=== PATIENT | male | born 1980 | race Hispanic/Latino ===

== ENCOUNTER 2024-05-02 20:57 | Inpatient (IN) | payer SELFPAY ==
[~2024-05-02] VITALS: Ht 180.3 cm; Wt 105.7 kg
[2024-05-02] MEDS: niCARDIpine 25MG INJ IV ONE (21:21)
[2024-05-02 21:26] LABS: BASOPHILS # (AUTO) 0.07 K/uL (0.00-0.20); BASOPHILS % (AUTO) 0.7 % (0.0-5.0); EOSINOPHILS # (AUTO) 0.13 K/uL (0.00-0.70); EOSINOPHILS % (AUTO) 1.3 % (0.0-8.0); HEMATOCRIT 37.8 % (42-54); IMMATURE GRANULOCYTE ABSOLUTE 0.05 K/uL (0-1); LYMPHOCYTES # (AUTO) 2.3 K/uL (1.0-4.8); LYMPHOCYTES % (AUTO) 23.9 % (21.0-51.0); MEAN CORPUSCULAR HEMOGLOBIN 30.8 pg (27.0-33.0); MEAN CORPUSCULAR HGB CONC 35.2 g/dL (32.0-36.0); MEAN CORPUSCULAR VOLUME 87.5 fL (79-99); MONOCYTES # (AUTO) 0.5 K/uL (0.1-1.0); MONOCYTES % (AUTO) 5.6 % (3.0-13.0); NEUTROPHILS # (AUTO) 6.6 K/uL (1.8-7.7); PLATELET COUNT (AUTO) 186 K/uL (130-400); RED BLOOD CELL COUNT(AUTO) 4.32 MIL/uL (4.50-6.20); RED CELL DISTRIBUTION WIDTH 12.3 % (11.0-15.5); WHITE BLOOD COUNT (AUTO) 9.7 K/uL (4.8-10.8)
[2024-05-02 21:30] LABS: ADD UA MICROSCOPIC YES; APPEARANCE,URINE CLEAR (CLEAR); BILIRUBIN,URINE NEGATIVE (NEGATIVE); COLOR,URINE LIGHT-YELLOW (YELLOW); GLUCOSE, URINE (UA) >=1000 mg/dL (NEGATIVE); KETONES,URINE NEGATIVE (NEGATIVE); LEUKOCYTE ESTERASE ,URINE NEGATIVE Leu/uL (NEGATIVE); NITRATE,URINE NEGATIVE (NEGATIVE); OCCULT BLOOD,URINE SMALL (NEGATIVE); PH,URINE 6.5 (5.0-8.0); PROTEIN,URINE 600 mg/dL (NEGATIVE); UROBILINOGEN,URINE 0.2 mg/dL (0.2-1.0)
[2024-05-02 21:34] LABS: CREATININE 1.8 mg/dL (0.5-1.3); POTASSIUM 3.5 mmol/L (3.5-5.1)
[2024-05-02] MEDS: NICARDIPINE IV PRN (21:38)
[2024-05-02] MEDS: NACL 0.9% IV PRN (21:38)
[2024-05-02 21:51] LABS: B-TYPE NATRIURETIC PEPTIDE 83 pg/mL (0-100)
[2024-05-02 22:04] LABS: BACTERIA,URINE RARE /HPF (None Seen); MUCUS,URINE RARE LPF (None Seen); SQUAMOUS EPITHELIAL CELL,UR RARE /HPF (0-2); YEAST,URINE BUDDING RARE /HPF (None Seen)
--- NOTE | 2024-05-02 22:13 | ERN ---
General Chief Complaint: Headache Stated Complaint: HEADACHE, DIZZINESS, BLURRY VISION Time Seen by MD: 20:59 History of Present Illness Initial Comments Mr. Tidwell is a very pleasant 43-year-old male who comes in with a past medical history of essential hypertension, type 2 diabetes, history of medical noncompliance. Patient reports that he has been having ongoing visual changes and headache for the last several days. 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 Patient initial presentation has a blood pressure of 201/125 with a blood sugar in the 400s. Allergies: Coded Allergies: No Known Drug Allergies (Unverified Allergy, Unknown, 05/02/24) Past Medical History Past Medical History: Diabetes-Type II, Hypertension Past Surgical History: None ROS Dictation Constitutional: Negative for fever,chills, and weight loss Eyes: Negative for injury, pain,redness, and discharge ENT: Positive for visual changes Cardiovascular: Negative for chest pain, palpitations, and edema Respiratory: Negative for shortness of breath, cough, and wheezing, Abdomen/GI: Negative for abdominal pain, nausea, vomiting, diarrhea, and constipation Back: Negative for injury and pain : Negative for injury, bleeding and discharge MS/Extremity: Negative for injury and deformity Skin: Negative for rash, and discoloration Neuro: Headache Psych: Negative for suicide ideation, homicidal ideation, and hallucinations Physical Exam Physical Exam Dictation General: awake, alert, NAD Head/Face: Normocephalic, atraumatic Eyes: PERRL, vision blurry ENT: oral cavity clear, Neck: Trachea midline, supple, no nuchal rigidity Cardiovascular: RRR, normal S1/S2, No MRGs, no JVD Respiratory: CTAB, no respiratory distress, No rales or wheezes Abdomen: Soft, non-tender, non-distended, Skin: Warm, dry, normal turgor, no rash MS/Extremity: Pulses equal, no cyanosis Neuro: COAx4, GCS 15, Results Laboratory and Microbiology Lab and Micro Result Laboratory Tests Test 05/02/24 21:17 White Blood Count 9.7 K/uL (4.8-10.8) Red Blood Count 4.32 MIL/uL (4.50-6.20) L Hemoglobin 13.3 g/dL (14.0-18.0) L Hematocrit 37.8 % (42-54) L Mean Corpuscular Volume 87.5 fL (79-99) Mean Corpuscular Hemoglobin 30.8 pg (27.0-33.0) Mean Corpuscular Hemoglobin Concent 35.2 g/dL (32.0-36.0) Red Cell Distribution Width 12.3 % (11.0-15.5) Platelet Count 186 K/uL (130-400) Mean Platelet Volume 13.3 fL (7.5-10.5) H Immature Granulocyte % (Auto) 0.5 % (0-1) Neutrophils (%) (Auto) 68.0 % (40.0-77.0) Lymphocytes (%) (Auto) 23.9 % (21.0-51.0) Monocytes (%) (Auto) 5.6 % (3.0-13.0) Eosinophils (%) (Auto) 1.3 % (0.0-8.0) Basophils (%) (Auto) 0.7 % (0.0-5.0) Neutrophils # (Auto) 6.6 K/uL (1.8-7.7) Lymphocytes # (Auto) 2.3 K/uL (1.0-4.8) Monocytes # (Auto) 0.5 K/uL (0.1-1.0) Eosinophils # (Auto) 0.13 K/uL (0.00-0.70) Basophils # (Auto) 0.07 K/uL (0.00-0.20) Absolute Immature Granulocyte (auto 0.05 K/uL (0-1) Nucleated Red Blood Cells 0.0 % (0.0-0.19) Urine Color LIGHT-YELLOW (YELLOW) Urine Appearance CLEAR (CLEAR) Urine pH 6.5 (5.0-8.0) Urine Specific [place] 1.032 (1.001-1.031) Urine Protein 600 mg/dL (NEGATIVE) H Urine Glucose (UA) >=1000 mg/dL (NEGATIVE) H Urine Ketones NEGATIVE mg/dL (NEGATIVE) Urine Occult Blood SMALL (NEGATIVE) H Urine Nitrate NEGATIVE (NEGATIVE) Urine Bilirubin NEGATIVE mg/dL (NEGATIVE) Urine Urobilinogen 0.2 mg/dL (0.2-1.0) Urine Leukocyte Esterase NEGATIVE Paulina/uL Urine RBC 6-10 /HPF (0-1) H Urine WBC 2-5 /HPF (0-1) H Urine Squamous Epithelial Cells RARE /HPF (0-2) Urine Bacteria RARE /HPF (None Seen) Urine Yeast RARE /HPF (None Seen) Sodium Level 136 mmol/L (136-145) Potassium Level 3.5 mmol/L (3.5-5.1) Chloride Level 102 mmol/L (101-111) Carbon Dioxide Level 29 mmol/L (21-32) Blood Urea Nitrogen 12 mg/dL (7-18) Creatinine 1.8 mg/dL (0.5-1.3) H Glomerular Filtration Rate Calc 47 mL/min (>90) Random Glucose 382 mg/dL (70-105) H Total Calcium 7.4 mg/dL (8.5-10.1) L Troponin I < 0.05 ng/mL (0.00-0.05) B-Type Natriuretic Peptide 83 pg/mL (0-100) MDM Patient has been placed with a Cardene drip and will be admitted to the ICU for higher level of care. Patient will also need Neurology and MRI brain MDM: Differential diagnosis: Hypertensive emergency Rationale: Tests considered and ordered secondary to shared decision making include: labs, ECG and radiology Previous outside records reviewed: Old ER visits. Risk of complication and/or morbidity or mortality of patient management: None Medications-Per medication reconciliation Need for hospitalization: Patient does meet criteria for hospitalization. Need for emergency major/minor surgery: No There are no social concerns with this patient. Prescription drug management Prescriptions will include symptomatic care Patient's prior external medical records from other ER visits were reviewed by me as indicated. Prior testing and results from previous visits were reviewed. Prior tests were taken into account with medical decision making and resource utilization, independent historian/historians were used to obtain complete medical history. I independently interpreted the test that were performed, results were reviewed by me and considered findings on radiology if ordered. Medical management and examination interpretation discussions were had by vt wi th other qualified healthcare professionals as indicated for the patient's care. ED Course Orders Procedure Category Date Status Time Nicardipine 25mg Inj PHA 05/02/24 Complete (Cardene 25mg Inj) 21:12 Cbc With Differential LAB 05/02/24 Complete 21:15 B-Type Natriuretic LAB 05/02/24 Complete Peptide 21:15 Chest 1vw RAD 05/02/24 Taken 21:15 Urinalysis Profile LAB 05/02/24 Complete 21:15 Troponin Poc Order LAB 05/02/24 Complete Only 21:15 Basic Metabolic Panel LAB 05/02/24 Complete 21:15 Ct Head/Brain W/O CT 05/02/24 Resulted Contrast 21:15 Nicardipine 25mg Inj PHA 05/02/24 In Process (Cardene 25mg Inj) 21:30 Please Call Pha To CPOE 05/02/24 Transmitted Request Iv 21:11 12 Lead Ekg Tracing- EKG 05/02/24 Logged Technical 21:22 Current Medications Medications (Trade) Dose Ordered Sig/Jaden Route PRN Reason Start Time Stop Time Status Last Admin Dose Admin Nicardipine HCl (CarDENE 25MG INJ) 25 mg STK-MED ONCE IV 05/02/24 21:12 05/02/24 21:12 DC Nicardipine HCl 20 mg/Sodium Chloride 200 ml @ 0 mls/hr AD PRN IV TITRATE 05/02/24 21:30 06/01/24 21:29 05/02/24 21:38 Vital Signs Date Time Temp Pulse Resp B/P (MAP) Pulse Ox O2 Delivery O2 Flow Rate FiO2 05/02/24 22:55 95 17 151/92 98 Room Air* 0 05/02/24 22:32 85 17 144/91 98 Room Air* 0 05/02/24 22:02 94 14 140/91 98 Room Air* 0 05/02/24 21:38 80 171/115 05/02/24 21:31 98.8 87 14 171/115 98 Room Air* 0 05/02/24 21:15 80 17 171/105 97 Room Air* 0 05/02/24 21:00 98.4 65 18 170/96 98 Room Air 0 DX & DISP Disposition: Inpatient Departure Impression: Primary Impression: Hypertensive emergency Condition: Stable Referrals: NONE (PCP) SEAN BARBA MD May 02, 2024 22:13
--- NOTE | 2024-05-02 22:28 | HMCIMG ---
CT HEAD/BRAIN W/O CONTRAST HISTORY: Headache COMPARISON: None TECHNIQUE: Multiple sequential axial images of the head were obtained from the base of the skull through vertex. Patient was not given contrast through intravenous route. FINDINGS: The ventricles and extraventricular CSF spaces are dilated consistent with cerebral atrophy. Nonspecific white matter changes seen. There is no midline shift, mass effect or herniation. No acute intracranial bleed is seen. Visualized portion of the paranasal sinuses are grossly within normal limits. IMPRESSION: 1. No acute intracranial bleed is seen. 2. Atrophy with white matter changes. CT was performed with one or more following dose reduction techniques: automated exposure control, adjustment of the mA and kv according to patient's size, or use of a iterative reconstruction technique.
--- NOTE | 2024-05-02 23:40 | HP ---
[facility] HISTORY AND PHYSICAL Date of Service: May 02, 2024 Time of Service: 23:39 Attending/supervising physicians: Dr. Swan and Dr. Huber Chan HISTORY OF PRESENT ILLNESS: Mr. Tidwell is a 43-year-old male with past medical history of essential hypertension, type 2 diabetes, history of medical noncompliance who presented [place] [facility] [place] evaluation of ongoing visual changes and headache for the last several days. 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 Patient initial presentation has a blood pressure of 201/125 with a blood sugar in the 400s. The patient has been placed with a Card sheila drip and will be admitted to the ICU for higher level of care, but his blood pressure improved to 120 systolic and Cardene was stopped and downgraded to PCCU. CT head: No acute intracranial bleed is seen. Atrophy with white matter changes. ED physician request patient be admitted with the diagnosis of hypertensive urgency for medical management and neurology workup. I went to assess the patient at bedside in ED 19. Patient's breathing was even, unlabored, in no distress. No neuro deficits. The patient reports he has not taking his medications for six months due to financial reasons. The patient s tates that he used to take lisinopril 10 mg p.o. b.i.d.. Carvedilol 3.125 mg p.o. b.i.d.. Add metformin 500 mg. I informed patient of labs, diagnostics, and plan of care. The patient verbalizes understanding and is in agreement with plan. REVIEW OF SYSTEMS 12-point ROS reviewed with patient. All pertinent positives mentioned above. Otherwise negative, non-pertinent, noncontributory. PAST MEDICAL HISTORY: As mentioned above PAST SURGICAL HISTORY: None PAST SOCIAL HISTORY: Denied alcohol, tobacco, and illicit drug use. FAMILY HISTORY: Noncontributory Coded Allergies: No Known Drug Allergies (Unverified Allergy, Unknown, 05/02/24) PHYSICAL EXAM GENERAL APPEARANCE: The patient is awake, alert, and oriented, in no acute cardiopulmonary distress. NEUROLOGICAL: Cranial nerves II-XII grossly intact. Motor is 5/5 in bilateral upper and lower extremities proximal to distal. No sensory deficits. PERRLA. HEENT: Face is symmetric. Pupils are equal and reactive. Extraocular movements are intact. NECK: Supple. No JVD. No thyromegaly. No submental, submandibular, pre- /postauricular, occipital or supraclavicular lymphadenopathy. CHEST: Normal chest expansion. No Telemetry. LUNGS: Absence of any rales, rhonchi or any wheezing. CARDIOVASCULAR: Regular. S1 and S2 normal. No appreciable rubs, murmurs or gallops. ABDOMEN: Obese. Soft, nontender, and nondistended. There is no rebound, voluntary guarding, or rigidity. : Deferred. No Edward. EXTREMITIES: Non-edematous and not cyanotic. No clubbing. Good capillary refill. SKIN: No skin breakdown. Vital Sign (Last 24 Hours) 05/02/24 05/02/24 21:31 23:36 Temp 98.8 Pulse 85 Resp 17 B/P (MAP) 127/87 Pulse Ox 98 O2 Delivery Room Air* O2 Flow Rate 0 FiO2 21 LABS: Laboratory: Test 05/02/24 21:17 Range/Units White Blood Count 9.7 4.8-10.8 K/uL Red Blood Count 4.32 L 4.50-6.20 MIL/uL Hemoglobin 13.3 L 14.0-18.0 g/dL Hematocrit 37.8 L 42-54 % Mean Corpuscular Volume 87.5 79-99 fL Mean Corpuscular Hemoglobin 30.8 27.0-33.0 pg Mean Corpuscular Hemoglobin Concent 35.2 32.0-36.0 g/dL Red Cell Distribution Width 12.3 11.0-15.5 % Platelet Count 186 130-400 K/uL Mean Platelet Volume 13.3 H 7.5-10.5 fL Immature Granulocyte % (Auto) 0.5 0-1 % Neutrophils (%) (Auto) 68.0 40.0-77.0 % Lymphocytes (%) (Auto) 23.9 21.0-51.0 % Monocytes (%) (Auto) 5.6 3.0-13.0 % Eosinophils (%) (Auto) 1.3 0.0-8.0 % Basophils (%) (Auto) 0.7 0.0-5.0 % Neutrophils # (Auto) 6.6 1.8-7.7 K/uL Lymphocytes # (Auto) 2.3 1.0-4.8 K/uL Monocytes # (Auto) 0.5 0.1-1.0 K/uL Eosinophils # (Auto) 0.13 0.00-0.70 K/uL Basophils # (Auto) 0.07 0.00-0.20 K/uL Absolute Immature Granulocyte (auto 0.05 0-1 K/uL Nucleated Red Blood Cells 0.0 0.0-0.19 % Urine Color LIGHT-YELLOW YELLOW Urine Appearance CLEAR CLEAR Urine pH 6.5 5.0-8.0 Urine Specific [place] 1.032 H 1.001-1.031 Urine Protein 600 H NEGATIVE mg/dL Urine Glucose (UA) >=1000 H NEGATIVE mg/dL Urine Ketones NEGATIVE NEGATIVE mg/dL Urine Occult Blood SMALL H NEGATIVE Urine Nitrate NEGATIVE NEGATIVE Urine Bilirubin NEGATIVE NEGATIVE mg/dL Urine Urobilinogen 0.2 0.2-1.0 mg/dL Urine Leukocyte Esterase NEGATIVE NEGATIVE Paulina/uL Urine RBC 6-10 H 0-1 /HPF Urine WBC 2-5 H 0-1 /HPF Urine Squamous Epithelial Cells RARE 0-2 /HPF Urine Bacteria RARE None Seen /HPF Urine Yeast RARE None Seen /HPF Sodium Level 136 136-145 mmol/L Potassium Level 3.5 3.5-5.1 mmol/L Chloride Level 102 101-111 mmol/L Carbon Dioxide Level 29 21-32 mmol/L Blood Urea Nitrogen 12 7-18 mg/dL Creatinine 1.8 H 0.5-1.3 mg/dL Glomerular Filtration Rate Calc 47 >90 mL/min Random Glucose 382 H 70-105 mg/dL Total Calcium 7.4 L 8.5-10.1 mg/dL Troponin I < 0.05 0.00-0.05 ng/mL B-Type Natriuretic Peptide 83 0-100 pg/mL Current Medications Medications (Trade) Dose Ordered Sig/Jaden Route PRN Reason Start Time Stop Time Status Last Admin Dose Admin Acetaminophen (TYLenol 325MG TAB) 650 mg Q6H PRN PO FEVER/MILD PAIN LEVEL 1-3 05/03/24 00:00 06/02/24 00:00 Acetaminophen (TYLenol 650MG SUPPOSITORY) 650 mg Q6H PRN RC FEVER / MILD PAIN 1-3 IF NPO 05/03/24 00:00 06/02/24 00:00 Docusate Sodium (COLace 100MG CAP) 100 mg BID PRN PO c 05/03/24 00:00 06/02/24 00:00 Hydralazine HCl (APRESOLine 20MG INJ) 10 mg Q2H PRN IV SBP GREATER THAN 160 05/03/24 00:00 06/02/24 00:00 Insulin Human Regular (humuLIN R 100 UNIT/ML 3ML) INSULIN SLIDING SCAL... ACHS SQ 05/03/24 07:30 06/02/24 07:29 Lactulose (Constulose 20gm/ 30ml Udcup) 20 gm Q6H PRN PO CONSTIPATION 05/03/24 00:00 06/02/24 00:00 Nicardipine HCl 20 mg/Sodium Chloride 200 ml @ 0 mls/hr AD PRN IV TITRATE 05/02/24 21:30 06/01/24 21:29 05/02/24 21:38 5 MLS/HR Ondansetron HCl (zoFRAN 4MG INJ) 4 mg Q6H PRN IVP NAUSEA/VOMITING 05/03/24 00:00 06/02/24 00:00 Temazepam (restORIL 15 MG CAP) 15 mg HS PRN PO INSOMNIA/SLEEP 05/03/24 00:00 06/02/24 00:00 DIAGNOSTICS / RADIOLOGY: [ ] ASSESSMENT: Hypertensive urgency, POA, in need of Cardene Medical noncompliance, has not taking his blood pressures for six-month Acute headache, POA Vision changes: Blurry vision and double vision, POA Diabetes mellitus with hyperglycemia, POA Acute on chronic kidney disease, GFR 47(GFR 73 on 07/03/2015) Anemia Obesity, BMI 31.2. PLAN: Admit to PCCU with telemetry monitoring. Start home medications: Lisinopril 10 mg p.o. b.i.d., carvedilol 3.125 mg p.o. b.i.d.. Hold metformin and start insulin regular sliding scale per protocol. Consult neurology for evaluation of acute headache with vision changes (blurry vision and double vision). \ Will defer MRI for neurology's discretion. P.r.n. medications for: Pain management, nausea, vomiting, constipation, hypertension. Monitor renal and liver function. Monitor electrolytes and treat accordingly. Education done on medication compliance. Aamynnn44 mg p.o. daily. Atorvastatin 50 mg p.o. daily. DVT and GI prophylaxis. A.m. labs: CBC, BMP, Mag, phos, TSH, A1c ADVANCED CARE PLANNING 1. Which of the following were discussed? Hospice Care - No Therapeutic options - Yes Advance Directives - Yes Other discussions - 2. Discussed with who? Patient 3. Voluntary nature of this service was explained to the patient? Yes 4. Amount of time spent - __ over 35 minutes 5. Reviewed by Physician? (if this service was performed by HADLEY) Yes Patient seen and examined by me. Agree with note by BEVEL GEAR GENERATOR OPERATOR SEE ADDITIONAL ORDERS PER CHART DISCUSSED WITH NURSING STAFF REJI RODRIGEZ SHOES SALESPERSON May 02, 2024 23:39
--- NOTE | 2024-05-02 23:55 | NUR ---
PT DID NOT BRING IN HOME MEDS. PT IS NONCOMPLIANT WITH HOME MEDICATIONS
[2024-05-03] VITALS (28 sets, daily range): BP systolic 118–177; BP diastolic 61–111; PULSE 75–100; RESP 10–46; TEMP 97.7–99.5; O2SAT 98
[2024-05-03] MEDS ORDERED: LACTULOSE 20 GM/30 ML UDCUP PO PRN
[2024-05-03] MEDS ORDERED: doCUSate SODIUM 100 MG CAP PO PRN
[2024-05-03] MEDS ORDERED: ondanSETRON 4MG INJ IVP PRN
[2024-05-03] MEDS ORDERED: acetaMINOPHEN 650 MG SUPPOSITORY RC PRN
[2024-05-03] MEDS ORDERED: LISINOPRIL PO (00:49)
[2024-05-03] MEDS ORDERED: CARVEDILOL PO (00:49)
[2024-05-03] MEDS: TEMAZepam 15 MG CAPSULE PO PRN (01:22)
[2024-05-03] MEDS: hydrALAZine 20MG/ML VIAL IV PRN (01:23)
[2024-05-03] MEDS: carVEDIlol 3.125 MG TABLET PO SCH (01:26)
[2024-05-03] MEDS: LISINOPRIL 10 MG TABLET PO SCH (01:26)
[2024-05-03] MEDS: acetaMINOPHEN 325 MG TAB PO PRN (03:24)
[2024-05-03 04:51] LABS: BASOPHILS # (AUTO) 0.06 K/uL (0.00-0.20); BASOPHILS % (AUTO) 0.6 % (0.0-5.0); EOSINOPHILS # (AUTO) 0.16 K/uL (0.00-0.70); EOSINOPHILS % (AUTO) 1.7 % (0.0-8.0); HEMATOCRIT 32.8 % (42-54); IMMATURE GRANULOCYTE ABSOLUTE 0.05 K/uL (0-1); LYMPHOCYTES # (AUTO) 2.9 K/uL (1.0-4.8); LYMPHOCYTES % (AUTO) 30.5 % (21.0-51.0); MEAN CORPUSCULAR HEMOGLOBIN 30.6 pg (27.0-33.0); MEAN CORPUSCULAR HGB CONC 35.4 g/dL (32.0-36.0); MEAN CORPUSCULAR VOLUME 86.5 fL (79-99); MONOCYTES # (AUTO) 0.7 K/uL (0.1-1.0); MONOCYTES % (AUTO) 6.9 % (3.0-13.0); NEUTROPHILS # (AUTO) 5.7 K/uL (1.8-7.7); NEUTROPHILS % (AUTO) 59.8 % (40.0-77.0); PLATELET COUNT (AUTO) 164 K/uL (130-400); RED BLOOD CELL COUNT(AUTO) 3.79 MIL/uL (4.50-6.20); RED CELL DISTRIBUTION WIDTH 12.2 % (11.0-15.5); WHITE BLOOD COUNT (AUTO) 9.5 K/uL (4.8-10.8)
[2024-05-03 05:09] LABS: CREATININE 1.8 mg/dL (0.5-1.3); MAGNESIUM 1.9 mg/dL (1.80-2.40); PHOSPHORUS 2.2 mg/dL (2.5-4.9); POTASSIUM 3.1 mmol/L (3.5-5.1); THYROID STIMULATING HORMONE 3.26 uIU/mL (0.36-3.74)
[2024-05-03] MEDS ORDERED: PoTASSium chloRIDE 10MEQ/100ML 100 ML IV PRN (06:30)
[2024-05-03] MEDS ORDERED: GLUCAGON 1MG KIT 1 MG ML IM PRN (06:30)
[2024-05-03] MEDS ORDERED: DEXTROSE 50%-WATER 50 ML DISP.SYRIN IV PRN (06:30)
[2024-05-03] MEDS ORDERED: PoTASSium chl 10% ELIXIR 20MEQ 20 MEQ/15 ML UDCUP PO PRN (06:30)
--- NOTE | 2024-05-03 06:59 | EKG ---
[facility] Test Date: 2024-05-02 Test Time: 21:20:18 Pat Name: JOSSELYN GRIFFIN Department: [facility] Room: 217 1 Gender: M Quality Assurance Calibrator: [id number] : 1980 Requested By: SEAN BARBA Order Number: [id number] Reading MD: Clive Randhawa Measurements Intervals Isabella Rate: 80 P: 36 UT: 122 QRS: -3 QRSD: 85 T: 90 QT: 383 QTc: 442 Interpretive Statements Sinus rhythm Consider left ventricular hypertrophy Nonspecific T abnormalities, lateral leads Compared to ECG 07/03/2015 11:41:20 T-wave abnormality now present Short UT interval no longer present Electronically Signed On 05-03-2024 15:12:51 VESSEL MANAGER by Clive Randhawa Please click the below link to view image of tracing.
[2024-05-03] MEDS: PoTASSium chloRIDE 20MEQ ER 20 MEQ ERTAB PO PRN (07:04)
[2024-05-03] MEDS: INSULIN humuLIN R 100 UNIT/ML 3ML SQ SCH (07:04)
[2024-05-03] MEDS: MAGNESIUM 2GM PREMIX 50ML 50 ML IV PRN (08:05)
[2024-05-03] MEDS: ASPIRIN 81MG CHEW TAB PO SCH (08:13)
--- NOTE | 2024-05-03 08:42 | HMCIMG ---
CHEST 1VW REASON: CP COMPARISON: None. FINDINGS: Single view of the chest was obtained. Lungs are clear. Heart size is normal. There is no pulmonary vascular congestion. Mediastinum and bony thorax appear unremarkable. IMPRESSION: 1. Normal single view chest x-ray.
--- NOTE | 2024-05-03 08:49 | NUR ---
DR WILEY CALLED, MESSAGE LEFT TO CALL BACK FOR CONSULT AT [phone].
--- NOTE | 2024-05-03 10:16 | PN ---
[facility] PROGRESS NOTE Date of Service: May 03, 2024 Time of Service: 10:08 SUBJECTIVE: 05/03 patient seen at bedside, no acute events overnight. Patient reports his headache has resolved however he is still having persistent lay blurry vision. When he presented his blood pressure was elevated with systolics in the 170s. He has been weaned off of the Cardene drip at this point in time. It is possible his headache and blurry vision were secondary to the elevated blood pressure however now that his blood pressure is controlled and he continues to have blurry vision we will proceed with a full neuro workup. His pupils are equal and reactive bilaterally, there is no gaze deviation or nystagmus. We will order a urine drug screen to assess for possible toxic causes of his elevated blood pressure. We will order MRI of the brain to rule out acute ischemic stroke, carotid Dopplers to assess for carotid stenosis and an echocardiogram to assess for PFO, valvular issues or intracardiac thrombus. He is hemodynamically stable, hemoglobin decreased from 13.3 down to 11.6, potassium mildly decreased at 3.1, similar to yesterday. Glucose elevated in the 300s patient started on sliding scale, we will add glargine 15 units HS and continue to monitor. We will also order A1c. Creatinine elevated at 1.8, same as yesterday, if this is his baseline this would suggest chronically uncontrolled hypertension in addition to possibly uncontrolled diabetes resulting in chronic kidney disease. REVIEW OF SYSTEMS 12-point ROS reviewed with patient. All pertinent positives mentioned above. Otherwise negative, non-pertinent, noncontributory. PHYSICAL EXAM GENERAL APPEARANCE: The patient is awake, alert, and oriented, in no acute cardiopulmonary distress. NEUROLOGICAL: Cranial nerves II-XII grossly intact. Motor is 5/5 in bilateral upper and lower extremities proximal to distal. No sensory deficits. PERRLA. HEENT: Face is symmetric. Pupils are equal and reactive. Extraocular movements are intact. NECK: Supple. No JVD. No thyromegaly. No submental, submandibular, pre- /postauricular, occipital or supraclavicular lymphadenopathy. CHEST: Normal chest expansion. No Telemetry. LUNGS: Absence of any rales, rhonchi or any wheezing. CARDIOVASCULAR: Regular. S1 and S2 normal. No appreciable rubs, murmurs or gallops. ABDOMEN: Obese. Soft, nontender, and nondistended. There is no rebound, voluntary guarding, or rigidity. : Deferred. No Edward. EXTREMITIES: Non-edematous and not cyanotic. No clubbing. Good capillary refill. SKIN: No skin breakdown. Vital Signs (last 8hr) Date Time Temp Pulse Resp B/P (MAP) Pulse Ox O2 Delivery O2 Flow Rate FiO2 05/03/24 08:14 151/97 05/03/24 07:56 99.5 86 15 Room Air 05/03/24 07:00 83 12 144/92 98 Room Air 05/03/24 06:00 84 46 147/86 97 Room Air 05/03/24 05:31 87 24 139/88 98 Room Air 05/03/24 05:00 83 10 118/75 98 Room Air 05/03/24 04:00 84 22 141/76 98 Room Air 05/03/24 04:00 98 Room Air* 0 21 05/03/24 03:00 90 24 158/91 98 Room Air 05/03/24 02:24 91 19 121/61 99 Room Air LABS: Laboratory: Test 05/03/24 04:29 05/02/24 21:17 Range/Units White Blood Count 9.5 4.8-10.8 K/uL Red Blood Count 3.79 L 4.50-6.20 MIL/uL Hemoglobin 11.6 L 14.0-18.0 g/dL Hematocrit 32.8 L 42-54 % Mean Corpuscular Volume 86.5 79-99 fL Mean Corpuscular Hemoglobin 30.6 27.0-33.0 pg Mean Corpuscular Hemoglobin Concent 35.4 32.0-36.0 g/dL Red Cell Distribution Width 12.2 11.0-15.5 % Platelet Count 164 130-400 K/uL Mean Platelet Volume 13.4 H 7.5-10.5 fL Immature Granulocyte % (Auto) 0.5 0-1 % Neutrophils (%) (Auto) 59.8 40.0-77.0 % Lymphocytes (%) (Auto) 30.5 21.0-51.0 % Monocytes (%) (Auto) 6.9 3.0-13.0 % Eosinophils (%) (Auto) 1.7 0.0-8.0 % Basophils (%) (Auto) 0.6 0.0-5.0 % Neutrophils # (Auto) 5.7 1.8-7.7 K/uL Lymphocytes # (Auto) 2.9 1.0-4.8 K/uL Monocytes # (Auto) 0.7 0.1-1.0 K/uL Eosinophils # (Auto) 0.16 0.00-0.70 K/uL Basophils # (Auto) 0.06 0.00-0.20 K/uL Absolute Immature Granulocyte (auto 0.05 0-1 K/uL Nucleated Red Blood Cells 0.0 0.0-0.19 % Sodium Level 140 136-145 mmol/L Potassium Level 3.1 L 3.5-5.1 mmol/L Chloride Level 104 101-111 mmol/L Carbon Dioxide Level 29 21-32 mmol/L Blood Urea Nitrogen 11 7-18 mg/dL Creatinine 1.8 H 0.5-1.3 mg/dL Glomerular Filtration Rate Calc 47 >90 mL/min Random Glucose 300 H 70-105 mg/dL Total Calcium 7.4 L 8.5-10.1 mg/dL Phosphorus Level 2.2 L 2.5-4.9 mg/dL Magnesium Level 1.90 1.80-2.40 mg/dL Thyroid Stimulating Hormone (TSH) 3.26 0.36-3.74 uIU/mL Urine Color LIGHT-YELLOW YELLOW Urine Appearance CLEAR CLEAR Urine pH 6.5 5.0-8.0 Urine Specific [place] 1.032 H 1.001-1.031 Urine Protein 600 H NEGATIVE mg/dL Urine Glucose (UA) >=1000 H NEGATIVE mg/dL Urine Ketones NEGATIVE NEGATIVE mg/dL Urine Occult Blood SMALL H NEGATIVE Urine Nitrate NEGATIVE NEGATIVE Urine Bilirubin NEGATIVE NEGATIVE mg/dL Urine Urobilinogen 0.2 0.2-1.0 mg/dL Urine Leukocyte Esterase NEGATIVE NEGATIVE Paulina/uL Urine RBC 6-10 H 0-1 /HPF Urine WBC 2-5 H 0-1 /HPF Urine Squamous Epithelial Cells RARE 0-2 /HPF Urine Bacteria RARE None Seen /HPF Urine Yeast RARE None Seen /HPF Troponin I < 0.05 0.00-0.05 ng/mL B-Type Natriuretic Peptide 83 0-100 pg/mL Current Medications Medications (Trade) Dose Ordered Sig/Jaden Route PRN Reason Start Time Stop Time Status Last Admin Dose Admin Acetaminophen (TYLenol 325MG TAB) 650 mg Q6H PRN PO FEVER/MILD PAIN LEVEL 1-3 05/03/24 00:00 06/02/24 00:00 05/03/24 03:24 650 MG Acetaminophen (TYLenol 650MG SUPPOSITORY) 650 mg Q6H PRN RC FEVER / MILD PAIN 1-3 IF NPO 05/03/24 00:00 06/02/24 00:00 Aspirin (Aspirin 81mg Chew Tab) 81 mg DAILY PO 05/03/24 09:00 06/02/24 08:59 05/03/24 08:13 81 MG Atorvastatin Calcium (LIPItor 40MG) 40 mg HS PO 05/03/24 21:00 06/02/24 20:59 Carvedilol (Coreg 3.125MG) 3.125 mg BID PO 05/03/24 00:10 06/02/24 00:09 05/03/24 08:14 3.125 MG Dextrose (D50w) 50 ml AD PRN IV HYPOGLYCEMIA PROTOCOL 05/03/24 06:30 06/02/24 06:29 Docusate Sodium (COLace 100MG CAP) 100 mg BID PRN PO c 05/03/24 00:00 06/02/24 00:00 Glucagon (Glucagon 1mg Kit) 1 mg AD PRN IM HYPOGLYCEMIA PROTOCOL 05/03/24 06:30 06/02/24 06:29 Hydralazine HCl (APRESOLine 20MG INJ) 10 mg Q2H PRN IV SBP GREATER THAN 160 05/03/24 00:00 06/02/24 00:00 05/03/24 01:23 10 MG Insulin Human Regular (humuLIN R 100 UNIT/ML 3ML) INSULIN SLIDING SCAL... ACHS SQ 05/03/24 07:30 06/02/24 07:29 05/03/24 07:04 12 UNIT Lactulose (Constulose 20gm/ 30ml Udcup) 20 gm Q6H PRN PO CONSTIPATION 05/03/24 00:00 06/02/24 00:00 Lisinopril (Prinivil 10mg) 10 mg BID PO 05/03/24 00:10 05/03/24 09:54 DC 05/03/24 08:14 10 MG Lisinopril (Prinivil 20mg) 20 mg BID PO 05/03/24 21:00 06/02/24 20:59 Magnesium Sulfate 50 ml @ 0 mls/hr PROTOCOL PRN IV MAGNESIUM PROTOCOL 05/03/24 06:30 06/02/24 06:29 05/03/24 08:05 25 MLS/HR Nicardipine HCl 20 mg/Sodium Chloride 200 ml @ 0 mls/hr AD PRN IV TITRATE 05/02/24 21:30 05/03/24 06:48 DC 05/02/24 21:38 5 MLS/HR Ondansetron HCl (zoFRAN 4MG INJ) 4 mg Q6H PRN IVP NAUSEA/VOMITING 05/03/24 00:00 06/02/24 00:00 Potassium Chloride 100 ml @ 100 mls/hr AD PRN IV POTASSIUM PROTOCOL 05/03/24 06:30 06/02/24 06:29 Potassium Chloride (K-Dur/Klor-Con 20meq) 10 meq AD PRN PO POTASSIUM PROTOCOL 05/03/24 06:30 06/02/24 06:29 05/03/24 07:04 10 MEQ Potassium Chloride (KCl 10% Elixir 20meq/15ml) 10 meq AD PRN PO POTASSIUM PROTOCOL 05/03/24 06:30 06/02/24 06:29 Temazepam (restORIL 15 MG CAP) 15 mg HS PRN PO INSOMNIA/SLEEP 05/03/24 00:00 06/02/24 00:00 05/03/24 01:22 15 MG DIAGNOSTICS / RADIOLOGY: [ ] ASSESSMENT: Hypertensive urgency, POA, in need of Cardene Medical noncompliance, has not taking his blood pressures for six-month Acute headache, resolved POA Vision changes: Blurry vision and double vision, POA Diabetes mellitus with hyperglycemia, last A1C unknown POA Acute vs acute on chronic kidney disease, GFR 47(GFR 73 on 07/03/2015) Anemia Obesity, BMI 31.2. PLAN: Continue PCCU Increase lisinopril to 20mg BID Continue carvedilol 3.125mg q24h Continue sliding scale insulin Start glargine 15 units HS Continue hypoglycemia protocol MRI of the brain ordered, we will follow up Echocardiogram with bubble study ordered, we will follow up Carotid Doppler ultrasound ordered, we will follow up Renal ultrasound with Dopplers of the renal arteries ordered, we will follow up Aldosterone, renin ordered we will follow up HbA1c ordered, we will follow up Continue [id number] mg p.o. daily. Continue Atorvastatin 40 mg p.o. daily. Disposition: Pending further workup and improvement in clinical status Greater than 35 minutes ICU time spent care of this patient SHABBIR RUTHERFORD MD May 03, 2024 10:16
[2024-05-03 10:51] LABS: HEMOGLOBIN A1C 11.7 % (4.0-6.0)
--- NOTE | 2024-05-03 11:36 | HMCIMG ---
Exam: Noncontrast MRI brain REASON: Persistent blurry vision, acute onset, r/o acute stroke COMPARISON: There are no prior MRI scans available for comparison. TECHNIQUE: Routine cerebral imaging protocol was performed. Exam was performed without IV contrast. CONTRAST: None FINDINGS: There is normal appearing brain parenchyma. There are no focal mass lesions. There are no areas of abnormal signal intensity. Ventricles and sulci appear normal. Posterior fossa and brainstem structures appear unremarkable. There is no evidence of intracranial hemorrhage. Diffusion-weighted images are negative for an acute ischemic process. There are no abnormal fluid collections. Extracranial soft tissues appear normal as well. IMPRESSION: 1. Normal noncontrast MRI of the brain.
--- NOTE | 2024-05-03 13:59 | NUR ---
DCP: HOME Sw met with pt who works, drives, is independent of ADLS, lives with his grand mother [place] [phone]. Pt does not use any DME, or in home care services. No insurance or PCP. Pt given community resources. DCP is home Addendum: 05/03/24 at 1401 by HOA ESCALANTE SS Amended: Links added.
--- NOTE | 2024-05-03 15:24 | HMCSR ---
APPROVED REPORT EXAM: Two-dimensional and M-mode echocardiogram with Doppler and color Doppler. INDICATION ICD: stroke like symptoms Contrast Details Indication: Rule out PFO Agent/Amount Used: Agitated Saline 2D Dimensions RVDd2.9 cmLVEF(%)69.2 (>50%)LVED Vol(simp.)64.0 mL IVSd1.2 (0.7-1.1cm)FS(%)39 %LVES Vol(simp.)24.0 mL LVDd4.4 (3.8-5.6cm)LA (2D)4.2 (1.6-4.0cm)LVEF(%, simp.)63 % PWd1.4 (0.7-1.1cm)Ao Root(2D)3.5 (2.0-3.7cm)LA ESV INDEX (4CH)17.50 mL/m2 IVSs1.7 cmLVOT diam2.1 (1.8-2.4cm)LA ESV INDEX (2CH)23.80 mL/m2 LVDs2.7 (2.5-4.0cm)IVC diam1.5 cmLA ESV INDEX (BP)21.90 mL/m2 PWs2.1 cm M-Mode Dimensions EPSS0.8 cm LA (MM)4.4 (1.6-4.0cm) Ao Root(MM)3.5 (2.0-3.7cm) Aortic Valve AoV VTI0.2 mAo Mean GR4.0 mmHgLVOT VTI0.19 m EZIO (VMAX)2.9 cm2AVA (VTI) 2.9 cm2 Mitral Valve MV E Vmax73.1 cm/sDECEL Usjv177 ms MV A Vmax51.3 cm/sP 1/2 T59 ms E/A ratio1.4MVA (PHT)3.7 cm2 TDI E/E' Qfwdyd41.4E/E' Swgxmvi88.6 Medial E' Peak V5.90 cm/sLateral E' Peak V4.40 cm/s Tricuspid Valve TR Vmax2.2 m/s TR Peak GR20.0 mmHg Left Ventricle The left ventricle is normal size. There is normal LV segmental wall motion. Mild concentric left juloi tricular hypertrophy. LVEF is 60-65%. The left ventricular diastolic function is normal. Right Ventricle The right ventricle is normal size. The right ventricular systolic function is normal. Atria The left atrium size is normal. No evidence of PFO/ASD by agitated saline. The right atrium size is n ormal. Aortic Valve The aortic valve is normal in structure. No aortic regurgitation is present. There is no aortic valvu lar stenosis. Mitral Valve The mitral valve is normal in structure. There is no mitral valve regurgitation noted. There is no mi tral valve stenosis. Tricuspid Valve The tricuspid valve is normal in structure. There is no tricuspid valve regurgitation noted. Pulmonic Valve The pulmonary valve is normal in structure. There is no pulmonic valvular regurgitation. Great Vessels The aortic root is normal in size. The IVC is normal in size and collapses >50% with inspiration. Pericardium There is no pericardial effusion. Conclusion Mild concentric left ventricular hypertrophy. LVEF is 60-65%. No evidence of PFO/ASD by agitated saline.
--- NOTE | 2024-05-03 16:32 | HMCIMG ---
US CAROTID DUPLEX REASON: stroke like symtpoms, assess for stenosis TECHNIQUE: Exam was performed using spectral analysis and color flow imaging. FINDINGS: Color flow Doppler ultrasound shows normal-appearing bifurcations. There is no anatomic evidence of significant focal narrowing. Flow velocities and velocity ratios appear normal throughout. There is antegrade flow in both vertebral arteries. RIGHT CAROTID: CCA: 74 cm/sec ICA: 91 cm/sec Ratio: ICA/CCA: 1.2 ECA: 1:30 cm/sec Vertebral artery: 43 cm/sec LEFT CAROTID: CCA: 81 cm/sec ICA: 96 cm/sec Ratio: ICA/CCA: 1.2 ECA: 97 cm/sec Vertebral artery: 46 cm/sec IMPRESSION: Normal bilateral carotid Doppler ultrasound.
[2024-05-03 17:16] LABS: MAGNESIUM 2.4 mg/dL (1.80-2.40); POTASSIUM 3.3 mmol/L (3.5-5.1)
--- NOTE | 2024-05-03 18:15 | NUR ---
PT TRANSFERRED TO 131 VIA WHEELCHAIR, REPORT GIVEN TO MAYRA MIRANDA
[2024-05-03] MEDS: atorVAStatin 40 MG TABLET PO SCH (19:43)
[2024-05-03] MEDS: PoTASSium chloRIDE 10MEQ SR 10 MEQ/TAB TAB.SR.24H PO PRN (19:43)
[2024-05-03] MEDS: LISINOPRIL 20 MG TABLET PO SCH (20:05)
--- NOTE | 2024-05-03 20:16 | HMCIMG ---
US RENAL SONOGRAM HISTORY: Hypertension COMPARISON: None TECHNIQUE: Renal and renal arterial Doppler ultrasound study was performed. FINDINGS: The right kidney measures 11.2 x 5.2 x 5.5 cm. The left kidney measures 11.6 x 5 x 5.9 cm. No evidence of hydronephrosis is seen of either kidney. Both kidneys are seen. Normal waveforms are seen of the renal arteries bilaterally. Peak systolic velocity of right renal artery is 143 cm/s, left renal artery is 150 cm/s, abdominal aorta is 134 cm/s. Right renal artery aortic ratio is 1.1. Left renal artery aortic ratio is 1.11. IMPRESSION: 1. No hydronephrosis is seen. Unremarkable renal arterial Doppler ultrasound study.
[2024-05-04] VITALS (9 sets, daily range): BP systolic 132–152; BP diastolic 81–99; PULSE 79–96; RESP 18–20; TEMP 97.8–98.8; O2SAT 98
[2024-05-04] MEDS: INSULIN humuLIN R 100 UNIT/ML 3ML SQ SCH (06:20)
--- NOTE | 2024-05-04 09:17 | PN ---
[facility] PROGRESS NOTE Date of Service: May 04, 2024 Time of Service: 09:08 SUBJECTIVE: 05/03 patient seen at bedside, no acute events overnight. Patient reports his headache has resolved however he is still having persistent lay blurry vision. When he presented his blood pressure was elevated with systolics in the 170s. He has been weaned off of the Cardene drip at this point in time. It is possible his headache and blurry vision were secondary to the elevated blood pressure however now that his blood pressure is controlled and he continues to have blurry vision we will proceed with a full neuro workup. His pupils are equal and reactive bilaterally, there is no gaze deviation or nystagmus. We will order a urine drug screen to assess for possible toxic causes of his elevated blood pressure. We will order MRI of the brain to rule out acute ischemic stroke, carotid Dopplers to assess for carotid stenosis and an echocardiogram to assess for PFO, valvular issues or intracardiac thrombus. He is hemodynamically stable, hemoglobin decreased from 13.3 down to 11.6, potassium mildly decreased at 3.1, similar to yesterday. Glucose elevated in the 300s patient started on sliding scale, we will add glargine 15 units HS and continue to monitor. We will also order A1c. Creatinine elevated at 1.8, same as yesterday, if this is his baseline this would suggest chronically uncontrolled hypertension in addition to possibly uncontrolled diabetes resulting in chronic kidney disease. 05/04 patient seen at bedside, no acute events overnight. His neuro workup was negative there does not appear to be any acute intracranial abnormalities or carotid lesions. His blood pressure still elevated, we will adjust medications and observe for another 24 hours. Patient continues to read report blurry vision. He has long-term uncontrolled diabetes and reports that he is uninsured and can not afford his medications. His A1c is 11.7, this constellation of findings suggest progression of diabetic retinopathy. Once he is discharged he will need to follow up with an transcribing operators supervisor for a retina exam. We will consult social media marketing manager to assist patient in finding a clinic that accepts uninsured patients. REVIEW OF SYSTEMS 12-point ROS reviewed with patient. All pertinent positives mentioned above. Otherwise negative, non-pertinent, noncontributory. PHYSICAL EXAM GENERAL APPEARANCE: The patient is awake, alert, and oriented, in no acute cardiopulmonary distress. NEUROLOGICAL: Cranial nerves II-XII grossly intact. Motor is 5/5 in bilateral upper and lower extremities proximal to distal. No sensory deficits. PERRLA. HEENT: Face is symmetric. Pupils are equal and reactive. Extraocular movements are intact. NECK: Supple. No JVD. No thyromegaly. No submental, submandibular, pre- /postauricular, occipital or supraclavicular lymphadenopathy. CHEST: Normal chest expansion. No Telemetry. LUNGS: Absence of any rales, rhonchi or any wheezing. CARDIOVASCULAR: Regular. S1 and S2 normal. No appreciable rubs, murmurs or gallops. ABDOMEN: Obese. Soft, nontender, and nondistended. There is no rebound, voluntary guarding, or rigidity. : Deferred. No Edward. EXTREMITIES: Non-edematous and not cyanotic. No clubbing. Good capillary refill. SKIN: No skin breakdown. Vital Signs (last 8hr) Date Time Temp Pulse Resp B/P (MAP) Pulse Ox O2 Delivery O2 Flow Rate FiO2 05/04/24 07:42 98.8 79 20 149/90 97 Room Air 05/04/24 03:55 98.1 87 20 152/94 98 Room Air LABS: Laboratory: Test 05/04/24 05:44 05/03/24 16:36 05/03/24 04:29 05/02/24 21:17 Range/Units Whole Blood Glucose 343 H 70-110 MG/DL Potassium Level 3.3 L 3.5-5.1 mmol/L Magnesium Level 2.40 1.80-2.40 mg/dL White Blood Count 9.5 4.8-10.8 K/uL Red Blood Count 3.79 L 4.50-6.20 MIL/uL Hemoglobin 11.6 L 14.0-18.0 g/dL Hematocrit 32.8 L 42-54 % Mean Corpuscular Volume 86.5 79-99 fL Mean Corpuscular Hemoglobin 30.6 27.0-33.0 pg Mean Corpuscular Hemoglobin Concent 35.4 32.0-36.0 g/dL Red Cell Distribution Width 12.2 11.0-15.5 % Platelet Count 164 130-400 K/uL Mean Platelet Volume 13.4 H 7.5-10.5 fL Immature Granulocyte % (Auto) 0.5 0-1 % Neutrophils (%) (Auto) 59.8 40.0-77.0 % Lymphocytes (%) (Auto) 30.5 21.0-51.0 % Monocytes (%) (Auto) 6.9 3.0-13.0 % Eosinophils (%) (Auto) 1.7 0.0-8.0 % Basophils (%) (Auto) 0.6 0.0-5.0 % Neutrophils # (Auto) 5.7 1.8-7.7 K/uL Lymphocytes # (Auto) 2.9 1.0-4.8 K/uL Monocytes # (Auto) 0.7 0.1-1.0 K/uL Eosinophils # (Auto) 0.16 0.00-0.70 K/uL Basophils # (Auto) 0.06 0.00-0.20 K/uL Absolute Immature Granulocyte (auto 0.05 0-1 K/uL Nucleated Red Blood Cells 0.0 0.0-0.19 % Sodium Level 140 136-145 mmol/L Chloride Level 104 101-111 mmol/L Carbon Dioxide Level 29 21-32 mmol/L Blood Urea Nitrogen 11 7-18 mg/dL Creatinine 1.8 H 0.5-1.3 mg/dL Glomerular Filtration Rate Calc 47 >90 mL/min Random Glucose 300 H 70-105 mg/dL Hemoglobin A1c 11.7 H 4.0-6.0 % Estimated Average Glucose (eAG) 289 H 70-126 mg/dL Total Calcium 7.4 L 8.5-10.1 mg/dL Phosphorus Level 2.2 L 2.5-4.9 mg/dL Thyroid Stimulating Hormone (TSH) 3.26 0.36-3.74 uIU/mL Urine Color LIGHT-YELLOW YELLOW Urine Appearance CLEAR CLEAR Urine pH 6.5 5.0-8.0 Urine Specific [place] 1.032 H 1.001-1.031 Urine Protein 600 H NEGATIVE mg/dL Urine Glucose (UA) >=1000 H NEGATIVE mg/dL Urine Ketones NEGATIVE NEGATIVE mg/dL Urine Occult Blood SMALL H NEGATIVE Urine Nitrate NEGATIVE NEGATIVE Urine Bilirubin NEGATIVE NEGATIVE mg/dL Urine Urobilinogen 0.2 0.2-1.0 mg/dL Urine Leukocyte Esterase NEGATIVE NEGATIVE [place]/uL Urine RBC 6-10 H 0-1 /HPF Urine WBC 2-5 H 0-1 /HPF Urine Squamous Epithelial Cells RARE 0-2 /HPF Urine Bacteria RARE None Seen /HPF Urine Yeast RARE None Seen /HPF Troponin I < 0.05 0.00-0.05 ng/mL B-Type Natriuretic Peptide 83 0-100 pg/mL Current Medications Medications (Trade) Dose Ordered Sig/Jaden Route PRN Reason Start Time Stop Time Status Last Admin Dose Admin Acetaminophen (TYLenol 325MG TAB) 650 mg Q6H PRN PO FEVER/MILD PAIN LEVEL 1-3 05/03/24 00:00 06/02/24 00:00 05/04/24 06:19 650 MG Acetaminophen (TYLenol 650MG SUPPOSITORY) 650 mg Q6H PRN RC FEVER / MILD PAIN 1-3 IF NPO 05/03/24 00:00 06/02/24 00:00 Aspirin (Aspirin 81mg Chew Tab) 81 mg DAILY PO 05/03/24 09:00 06/02/24 08:59 05/03/24 08:13 81 MG Atorvastatin Calcium (LIPItor 40MG) 40 mg HS PO 05/03/24 21:00 06/02/24 20:59 05/03/24 19:43 40 MG Carvedilol (Coreg 3.125MG) 3.125 mg BID PO 05/03/24 00:10 06/02/24 00:09 05/03/24 20:06 3.125 MG Dextrose (D50w) 50 ml AD PRN IV HYPOGLYCEMIA PROTOCOL 05/03/24 06:30 06/02/24 06:29 Docusate Sodium (COLace 100MG CAP) 100 mg BID PRN PO c 05/03/24 00:00 06/02/24 00:00 Glucagon (Glucagon 1mg Kit) 1 mg AD PRN IM HYPOGLYCEMIA PROTOCOL 05/03/24 06:30 06/02/24 06:29 Hydralazine HCl (APRESOLine 20MG INJ) 10 mg Q2H PRN IV SBP GREATER THAN 160 05/03/24 00:00 06/02/24 00:00 05/03/24 18:11 10 MG Insulin Glargine (LANtus 100 UNITS/ML 10 ML VIAL) 15 units BID@0730,2100 SQ 05/04/24 09:00 06/03/24 08:59 Insulin Human Regular (humuLIN R 100 UNIT/ML 3ML) INSULIN SLIDING SCAL... ACHS SQ 05/03/24 07:30 05/04/24 00:12 DC 05/03/24 21:04 16 UNIT Insulin Human Regular (humuLIN R 100 UNIT/ML 3ML) INSULIN SLIDING SCAL... ACHS SQ 05/04/24 07:30 06/03/24 07:29 05/04/24 06:20 16 UNIT Lactulose (Constulose 20gm/ 30ml Udcup) 20 gm Q6H PRN PO CONSTIPATION 05/03/24 00:00 06/02/24 00:00 Lisinopril (Prinivil 10mg) 10 mg BID PO 05/03/24 00:10 05/03/24 09:54 DC 05/03/24 08:14 10 MG Lisinopril (Prinivil 20mg) 20 mg BID PO 05/03/24 21:00 06/02/24 20:59 05/03/24 20:05 20 MG Magnesium Sulfate 50 ml @ 0 mls/hr PROTOCOL PRN IV MAGNESIUM PROTOCOL 05/03/24 06:30 06/02/24 06:29 05/03/24 08:05 25 MLS/HR Nicardipine HCl 20 mg/Sodium Chloride 200 ml @ 0 mls/hr AD PRN IV TITRATE 05/02/24 21:30 05/03/24 06:48 DC 05/02/24 21:38 5 MLS/HR Nifedipine (adALAT 30MG) 30 mg BID PO 05/04/24 09:00 06/03/24 08:59 Ondansetron HCl (zoFRAN 4MG INJ) 4 mg Q6H PRN IVP NAUSEA/VOMITING 05/03/24 00:00 06/02/24 00:00 Potassium Chloride 100 ml @ 100 mls/hr AD PRN IV POTASSIUM PROTOCOL 05/03/24 06:30 06/02/24 06:29 Potassium Chloride (K-Dur 10meq Sr Tab) 10 meq AD PRN PO POTASSIUM PROTOCOL 05/03/24 19:30 06/02/24 06:29 05/03/24 19:44 10 MEQ Potassium Chloride (K-Dur/Klor-Con 20meq) 10 meq AD PRN PO POTASSIUM PROTOCOL 05/03/24 06:30 05/03/24 19:09 DC 05/03/24 18:10 10 MEQ Potassium Chloride (KCl 10% Elixir 20meq/15ml) 10 meq AD PRN PO POTASSIUM PROTOCOL 05/03/24 06:30 06/02/24 06:29 Temazepam (restORIL 15 MG CAP) 15 mg HS PRN PO INSOMNIA/SLEEP 05/03/24 00:00 06/02/24 00:00 05/03/24 01:22 15 MG DIAGNOSTICS / RADIOLOGY: [ ] ASSESSMENT: Hypertensive urgency, resolved POA Uncontrolled hypertension, POA Medical noncompliance, has not taking his medications for six-month Acute headache, resolved POA Vision changes: Blurry vision and double vision, likely diabetic retinopathy POA Diabetes mellitus with hyperglycemia, last A1C 11.7 POA Acute vs acute on chronic kidney disease, GFR 47(GFR 73 on 07/03/2015) Anemia Obesity, BMI 31.2. PLAN: Continue PCCU Continue lisinopril to 20mg BID Start nifedipine 30mg BID Continue carvedilol 3.125mg q24h Continue sliding scale insulin Increase glargine 15 units BID Continue hypoglycemia protocol MRI of the brain showing no acute intracranial abnormalities Echocardiogram with bubble study ordered, no abnormalities noted Carotid Doppler ultrasound ordered, no abnormalities noted Renal ultrasound with Dopplers of the renal arteries ordered, no abnormalities noted Aldosterone, renin still pending Continue [id number] mg p.o. daily. Continue Atorvastatin 40 mg p.o. daily. Disposition: Pending blood pressure control, possible discharge tomorrow SHABBIR RUTHERFORD MD May 04, 2024 09:17
[2024-05-04 09:52] LABS: HEMATOCRIT 34.8 % (42-54); MEAN CORPUSCULAR HEMOGLOBIN 30.5 pg (27.0-33.0); MEAN CORPUSCULAR HGB CONC 33.9 g/dL (32.0-36.0); MEAN CORPUSCULAR VOLUME 89.9 fL (79-99); RED BLOOD CELL COUNT(AUTO) 3.87 MIL/uL (4.50-6.20); RED CELL DISTRIBUTION WIDTH 12.4 % (11.0-15.5); WHITE BLOOD COUNT (AUTO) 7.9 K/uL (4.8-10.8)
[2024-05-04 10:00] LABS: CREATININE 1.6 mg/dL (0.5-1.3); POTASSIUM 3.6 mmol/L (3.5-5.1)
[2024-05-04] MEDS: nifeDIPine ER 30 MG TAB PO SCH (10:01)
[2024-05-04] MEDS: INSULIN GLARgine 100 UNITS/ML 10 ML VIAL SQ SCH (10:13)
[2024-05-05] VITALS (7 sets, daily range): BP systolic 148–159; BP diastolic 85–96; PULSE 80–91; RESP 18; TEMP 97.8–99.1; O2SAT 97–98
[2024-05-05 03:43] LABS: BASOPHILS # (AUTO) 0.06 K/uL (0.00-0.20); BASOPHILS % (AUTO) 0.7 % (0.0-5.0); EOSINOPHILS # (AUTO) 0.16 K/uL (0.00-0.70); EOSINOPHILS % (AUTO) 1.9 % (0.0-8.0); HEMATOCRIT 33.6 % (42-54); IMMATURE GRANULOCYTE ABSOLUTE 0.14 K/uL (0-1); LYMPHOCYTES # (AUTO) 2.6 K/uL (1.0-4.8); LYMPHOCYTES % (AUTO) 30.4 % (21.0-51.0); MEAN CORPUSCULAR HEMOGLOBIN 30.3 pg (27.0-33.0); MEAN CORPUSCULAR HGB CONC 34.2 g/dL (32.0-36.0); MEAN CORPUSCULAR VOLUME 88.4 fL (79-99); MONOCYTES # (AUTO) 0.5 K/uL (0.1-1.0); MONOCYTES % (AUTO) 6.2 % (3.0-13.0); NEUTROPHILS % (AUTO) 59.1 % (40.0-77.0); PLATELET COUNT (AUTO) 166 K/uL (130-400); RED CELL DISTRIBUTION WIDTH 12.2 % (11.0-15.5); WHITE BLOOD COUNT (AUTO) 8.4 K/uL (4.8-10.8)
[2024-05-05 04:02] LABS: CREATININE 1.7 mg/dL (0.5-1.3); MAGNESIUM 1.8 mg/dL (1.80-2.40); PHOSPHORUS 2.5 mg/dL (2.5-4.9); POTASSIUM 3.6 mmol/L (3.5-5.1)
[2024-05-05] MEDS ORDERED: NIFE-40 PO (08:35)
--- NOTE | 2024-05-05 08:44 | DS ---
Discharge Summary Hospital Course Summary: 43-year-old male presented with headache and blurry vision. He was noted to have very elevated blood pressure and was admitted to the ICU and started on a Cardene drip. The following morning he was weaned off the Cardene drip and his blood pressure medications were adjusted. He was also noted to have an A1c of 11.7, was started on long-acting insulin with sliding scale. Although his blood pressure was better controlled he reports his headache had resolved however he continued to have blurry vision. A stroke workup was initiated where a CT of the head an MRI of the brain without contrast were ordered however no acute intracranial abnormalities nor any evidence of ischemic stroke were noted. His carotid Dopplers were negative for any stenotic lesions. Given these findings his blurry vision is not likely secondary to a neurologic event. As the patient's has had long-term uncontrolled diabetes this may represent a progression of diabetic retinopathy. Unfortunately there is not an police guard on-call in the hospital and the patient will need to follow up outpatient for a retinal exam. By hospital day three the patient's blood pressure was managed well on oral medications and he was evaluated as stable and ready for discharge. He will be discharged home. He reports he currently does not have a PCP and foster care social worker was contacted to provide him with a list free medical clinics and does accepting sliding scale from patients without insurance. Procedure(s): Echocardiogram: Conclusion Mild concentric left ventricular hypertrophy. LVEF is 60-65%. No evidence of PFO/ASD by agitated saline. US CAROTID DUPLEX REASON: stroke like symtpoms, assess for stenosis TECHNIQUE: Exam was performed using spectral analysis and color flow imaging. FINDINGS: Color flow Doppler ultrasound shows normal-appearing bifurcations. There is no anatomic evidence of significant focal narrowing. Flow velocities and velocity ratios appear normal throughout. There is antegrade flow in both vertebral arteries. RIGHT CAROTID: CCA: 74 cm/sec ICA: 91 cm/sec Ratio: ICA/CCA: 1.2 ECA: 1:30 cm/sec Vertebral artery: 43 cm/sec LEFT CAROTID: CCA: 81 cm/sec ICA: 96 cm/sec Ratio: ICA/CCA: 1.2 ECA: 97 cm/sec Vertebral artery: 46 cm/sec IMPRESSION: Normal bilateral carotid Doppler ultrasound. Exam: Noncontrast MRI brain REASON: Persistent blurry vision, acute onset, r/o acute stroke COMPARISON: There are no prior MRI scans available for comparison. TECHNIQUE: Routine cerebral imaging protocol was performed. Exam was performed without IV contrast. CONTRAST: None FINDINGS: There is normal appearing brain parenchyma. There are no focal mass lesions. There are no areas of abnormal signal intensity. Ventricles and sulci appear normal. Posterior fossa and brainstem structures appear unremarkable. There is no evidence of intracranial hemorrhage. Diffusion-weighted images are negative for an acute ischemic process. There are no abnormal fluid collections. Extracranial soft tissues appear normal as well. IMPRESSION: 1. Normal noncontrast MRI of the brain. US RENAL SONOGRAM HISTORY: Hypertension COMPARISON: None TECHNIQUE: Renal and renal arterial Doppler ultrasound study was performed. FINDINGS: The right kidney measures 11.2 x 5.2 x 5.5 cm. The left kidney measures 11.6 x 5 x 5.9 cm. No evidence of hydronephrosis is seen of either kidney. Both kidneys are seen. Normal waveforms are seen of the renal arteries bilaterally. Peak systolic velocity of right renal artery is 143 cm/s, left renal artery is 150 cm/s, abdominal aorta is 134 cm/s. Right renal artery aortic ratio is 1.1. Left renal artery aortic ratio is 1.11. IMPRESSION: 1. No hydronephrosis is seen. Unremarkable renal arterial Doppler ultrasound study. CT HEAD/BRAIN W/O CONTRAST HISTORY: Headache COMPARISON: None TECHNIQUE: Multiple sequential axial images of the head were obtained from the base of the skull through vertex. Patient was not given contrast through intravenous route. FINDINGS: The ventricles and extraventricular CSF spaces are dilated consistent with cerebral atrophy. Nonspecific white matter changes seen. There is no midline shift, mass effect or herniation. No acute intracranial bleed is seen. Visualized portion of the paranasal sinuses are grossly within normal limits. IMPRESSION: 1. No acute intracranial bleed is seen. 2. Atrophy with white matter changes. CHEST 1VW REASON: CP COMPARISON: None. FINDINGS: Single view of the chest was obtained. Lungs are clear. Heart size is normal. There is no pulmonary vascular congestion. Mediastinum and bony thorax appear unremarkable. IMPRESSION: 1. Normal single view chest x-ray. Assessment/Plan: Hypertensive urgency, resolved POA Uncontrolled hypertension, POA Medical noncompliance, has not taking his medications for six-month Acute headache, resolved POA Vision changes: Blurry vision and double vision, likely diabetic retinopathy POA Diabetes mellitus with hyperglycemia, last A1C 11.7 POA Acute vs acute on chronic kidney disease, GFR 47(GFR 73 on 07/03/2015) Anemia Obesity, BMI 31.2. Discharge Instructions: Follow up with PCP in 3-7 days. Patient last A1C was 11.7, oral diabetes medications not likely to be sufficient. Please start patient on insulin, provide training and education for usage as well as diet and lifestyle modifications. Follow up with police guard for retinal eye exam Home Medications: Reported Medications [Carvedilol] No Conflict Check, PO 05/03/24 [Lisinopril] No Conflict Check, PO 05/03/24 SHABBIR RUTHERFORD MD May 05, 2024 08:44
[2024-05-05] MEDS ORDERED: PEG 3350/NA SULF,BICARB,CL/KCL 4000 ML SOLN PO ONE (10:30)
--- NOTE | 2024-05-05 14:00 | NUR ---
pt complain of left forehead pressure medicated with tylenol po pt states he is seeing double when he looks to the left side of room eyes are light sensitive states he feels dizzy when standing up
[2024-05-06 01:03] VITALS: BP 140/78; PULSE 80; RESP 18; TEMP 98.8
[2024-05-06 03:52] LABS: BASOPHILS # (AUTO) 0.05 K/uL (0.00-0.20); BASOPHILS % (AUTO) 0.5 % (0.0-5.0); EOSINOPHILS # (AUTO) 0.18 K/uL (0.00-0.70); EOSINOPHILS % (AUTO) 1.8 % (0.0-8.0); HEMATOCRIT 31.9 % (42-54); IMMATURE GRANULOCYTE ABSOLUTE 0.18 K/uL (0-1); LYMPHOCYTES # (AUTO) 2.7 K/uL (1.0-4.8); LYMPHOCYTES % (AUTO) 27.2 % (21.0-51.0); MEAN CORPUSCULAR HEMOGLOBIN 30.3 pg (27.0-33.0); MEAN CORPUSCULAR HGB CONC 34.2 g/dL (32.0-36.0); MEAN CORPUSCULAR VOLUME 88.6 fL (79-99); MONOCYTES # (AUTO) 0.7 K/uL (0.1-1.0); MONOCYTES % (AUTO) 6.8 % (3.0-13.0); NEUTROPHILS # (AUTO) 6.1 K/uL (1.8-7.7); NEUTROPHILS % (AUTO) 61.9 % (40.0-77.0); PLATELET COUNT (AUTO) 151 K/uL (130-400); WHITE BLOOD COUNT (AUTO) 9.8 K/uL (4.8-10.8)
[2024-05-06 04:05] LABS: CREATININE 1.9 mg/dL (0.5-1.3); POTASSIUM 3.7 mmol/L (3.5-5.1)
[2024-05-06 05:53] VITALS: BP 139/71; PULSE 84; RESP 18; TEMP 98.8
[2024-05-06 08:00] VITALS: O2SAT 97
[2024-05-06 08:50] VITALS: BP 133/85; PULSE 80; RESP 18; TEMP 98.1
[2024-05-06] MEDS ORDERED: LISI20TA24 PO (10:17)
[2024-05-06] MEDS ORDERED: CARV3.1262 PO (10:17)
[2024-05-06] MEDS ORDERED: ASPI-1005 PO (10:17)
[2024-05-06] MEDS ORDERED: ATOR40TA69 PO (10:17)
[2024-05-06] MEDS ORDERED: METF-1151 PO (10:17)
[2024-05-06] MEDS ORDERED: GLYB5TAB8 PO (10:17)
[2024-05-06 12:30] VITALS: BP 144/93; PULSE 85; RESP 18; TEMP 98.3
--- NOTE | 2024-05-06 13:00 | NUR ---
DISCHARGE INSTRUCTIONS GIVEN INCLUDING THE NECESSITY OF CONNECTING WITH PRIMARY PHYSICIAN AND TAKING MEDS ORDERED NAMES AND NUMBERS OF SLIDING SCALE LOW COST CLINICS GIVEN INCLUDING [facility]. VERBALIZED UNDERSTANDING. INSULIN SS GIVEN, PATIENT WITH ALL BELONGINGS, PATIENT HAS BEEN WAITING ON A RIDE FOR SEVERAL HOURS, STATES STARTED CALLING FOR RIDE AT 1030
== END 2024-05-06 13:00 | disposition home or self-care (01) | DRG 305 ==
LOC: EDH 20:57 → EDHIP 20:58 → 2CH 23:41 → 2AH 05-03 18:26
PROVIDERS: ADMIT Hospitalist; ATTEND Hospitalist
DX: I16.0 Hypertensive urgency (principal); N17.9 Acute kidney failure, unspecified; E11.319 Type 2 diabetes mellitus with unspecified diabetic retinopathy without macular edema; D64.9 Anemia, unspecified; N18.9 Chronic kidney disease, unspecified; Z68.31 Body mass index [BMI] 31.0-31.9, adult; E66.9 Obesity, unspecified; E11.22 Type 2 diabetes mellitus with diabetic chronic kidney disease; I12.9 Hypertensive chronic kidney disease with stage 1 through stage 4 chronic kidney disease, or unspecified chronic kidney disease; K59.00 Constipation, unspecified; E11.65 Type 2 diabetes mellitus with hyperglycemia; H53.2 Diplopia; Z91.199 Patient's noncompliance with other medical treatment and regimen due to unspecified reason; Z79.4 Long term (current) use of insulin; Z79.84 Long term (current) use of oral hypoglycemic drugs; Z79.899 Other long term (current) drug therapy
CPT/HCPCS: 36415; 70450; 70551; 71045; 76770; 80048; 81001; 82088; 82948; 83036; 83735; 83880; 84100; 84132; 84244; 84443; 84484; 85025; 85027; 93005; 93306; 93880; 96365; G0378; J0360; J1815; J3475; J3490; A4216